=== PATIENT | female | born 1955 | race Caucasian/White ===

== ENCOUNTER 2018-02-19 09:45 | Day surgery (SDC) | payer OTHER ==
[~2018-02-19] VITALS: Ht 165.1 cm; Wt 122.7 kg
--- NOTE | ~2018-02-19 | OP ---
PATIENT NAME: EDWIN GRIGGS MEDICAL RECORD: [id number] :55 LOCATION:[facility] ADMISSION DATE: SURGEON: NU CASTELLANOS MD DATE OF OPERATION: 02/19/2018 PROCEDURE: EGD with biopsy. AGILE PROJECT MANAGER: Nu Castellanos MD SCOPE: Olympus video gastroscope. MEDICATIONS: Per TIVA anesthesia. The patient received 150 mg of propofol for this procedure, O2 4 liters. INDICATION FOR THE PROCEDURE: Iron deficiency anemia and gastroesophageal reflux disease. The patient sees Dr. Starks for her anemia and will receive a copy of this report. FINDINGS: Informed consent was given. The patient was made comfortable with the above medications. After reaching an adequate level of sedation by slow IV push, the patient was placed on her left side. The endoscope was then advanced under direct visualization through the posterior pharyngeal area and advanced to the distal esophagus. At the distal esophageal area, only minimal inflammation was appreciated. Biopsies were obtained. On entering the stomach, very mild to moderate inflammation was noted. No ulcers were appreciated. No erosions were seen. The cardia, body, and fundus had inflammation, but to a lesser degree. The duodenal bulb to the second portion had mild inflammation noted. Biopsies were again obtained. The scope was then withdrawn. IMPRESSION: 1. Mild distal esophagitis. 2. Mild to moderate gastritis. 3. Mild duodenitis. No ulcers. PLAN: The patient is presently taking Prilosec at a dose of 20 mg p.o. b.i.d. Due to her iron deficiency, I would like to stop this medication and change to famotidine at a dose of 20 mg p.o. b.i.d. The reason for stopping Prilosec is that it can add to both iron and calcium deficiency. The patient should follow reflux precautions. No chocolate, tomato, citrus, caffeine, fatty foods, peppermint. The patient should not eat late at night and sit up for at least 2 hours after every meal. We will be proceeding with a colonoscopy in the future. TRANSINT:[id number] Voice Confirmation ID: [id number] DOCUMENT ID: [id number] CC: Kristina Henry APN [id number] Dr. Starks OPERATIVE REPORT [id number] ELIAS GRIGGSORAH NU CASTELLANOS MD at 1421 CC: SHALINI STARKS MD and KRISTINA HENRY [id number] DICTATION DATE: 02/19/18 1315 CORD TIRE BUILDER: 02/19/18 1334 [facility] [place] 02/19/18 [id number] [place] [address]
[2018-02-19] MEDS ORDERED: VICTOZA0.6 MG/0.1 SQ (10:47)
[2018-02-19] MEDS ORDERED: LEVEMIR100 U/M1 SC (10:47)
[2018-02-19] MEDS ORDERED: NIFEDIPINE ER60 MG PO (10:48)
[2018-02-19] MEDS ORDERED: GLUCOPHAGE500 MG PO (10:48)
[2018-02-19] MEDS ORDERED: CATAPRES0.1 MG PO (10:49)
[2018-02-19] MEDS ORDERED: ALDACTONE50 MG PO (10:50)
[2018-02-19] MEDS ORDERED: SINGULAIR10 MG PO (10:51)
[2018-02-19] MEDS ORDERED: ZOLOFT100 MG PO (10:51)
[2018-02-19] MEDS ORDERED: XOPENEX 0.0.63 MG/3 UPD (10:53)
[2018-02-19] MEDS ORDERED: PROVENTIL HFA6.7 GM INH (10:54)
[2018-02-19] MEDS ORDERED: COLACE100 MG PO (10:54)
[2018-02-19] MEDS ORDERED: NOVOLOG100 U/M1 SC (10:55)
[2018-02-19] MEDS ORDERED: FERROUS SULFAT325 MG PO (10:55)
[2018-02-19] MEDS ORDERED: BAYER CHEWABLE81 MG PO (10:56)
[2018-02-19 11:01] VITALS: BP 168/80; Ht 165.1 cm; Wt 122.7 kg
[2018-02-19 11:44] LABS: HEMATOCRIT 35.9 % (36.0-48.0); HEMOGLOBIN 11.3 g/dL (12-16); MCH 27.8 pg (26.0-34.0); MCHC 31.5 g/dL (31.0-37.0); MCV 88.2 fL (80.0-100.0); RBC 4.07 10x6/uL (4.00-5.40); RDW 14.5 % (11.5-14.5); WBC 12.9 10x3/uL (4.8-10.8)
[2018-02-19 11:55] LABS: CALC OSMOLALITY 285 mosm/kg (275-300); CALCIUM 9.1 mg/dL (8.5-10.1); CARBON DIOXIDE 29.7 mmol/L (21.0-32.0); CHLORIDE - SERUM 103 mmol/L (98-107); CREATININE - SERUM 0.7 mg/dL (0.6-1.3); GLUCOSE 119 mg/dL (74-106); POTASSIUM - SERUM 4.1 mmol/L (3.5-5.1); SODIUM 143 mmol/L (136-145); UREA NITROGEN 13 mg/dL (7-18); eGFR NON AFRICAN AMERICAN 90 mL/min (90-120)
== END 2018-02-19 14:00 | disposition home or self-care (01) ==
LOC: D.OPS 09:45
PROVIDERS: Anesthesiology
DX: K21.0 Gastro-esophageal reflux disease with esophagitis (principal); K29.50 Unspecified chronic gastritis without bleeding; K29.80 Duodenitis without bleeding; D50.9 Iron deficiency anemia, unspecified; Z01.812 Encounter for preprocedural laboratory examination

== ENCOUNTER 2018-05-09 09:41 | Emergency (ER) | payer OTHER ==
[~2018-05-09] VITALS: Ht 165.1 cm; Wt 125.0 kg
[~2018-05-09 09:41] MED LIST: ALDACTONE50 MG PO; BAYER CHEWABLE81 MG PO; CATAPRES0.1 MG PO; COLACE100 MG PO; FERROUS SULFAT325 MG PO; GLUCOPHAGE500 MG PO; LEVEMIR100 U/M1 SC; NIFEDIPINE ER60 MG PO; NOVOLOG100 U/M1 SC; PROVENTIL HFA6.7 GM INH; SINGULAIR10 MG PO; VICTOZA0.6 MG/0.1 SQ; XOPENEX 0.0.63 MG/3 UPD; ZOLOFT100 MG PO
[2018-05-09 09:46] VITALS: BP 184/81; Ht 165.1 cm; Wt 125.0 kg
[2018-05-09] MEDS ORDERED: TORADOL10 MG PO (10:55)
== END 2018-05-09 11:17 | disposition home or self-care (01) ==
LOC: D.ER 09:41
DX: M75.101 Unspecified rotator cuff tear or rupture of right shoulder, not specified as traumatic (principal); E11.9 Type 2 diabetes mellitus without complications; I10 Essential (primary) hypertension

== ENCOUNTER 2018-09-17 12:30 | Day surgery (SDC) | payer OTHER ==
[~2018-09-17] VITALS: Ht 165.1 cm; Wt 125.5 kg
--- NOTE | ~2018-09-17 | OP ---
PATIENT NAME: EDWIN GRIGGS MEDICAL RECORD: [id number] :55 LOCATION:[facility] ADMISSION DATE: SURGEON: NU CASTELLANOS MD DATE OF OPERATION: 09/17/2018 PROCEDURE: Colonoscopy, no polypectomy, no biopsy. SUPERVISOR COMPUTER OPERATIONS: Nu Castellanos MD SCOPE: Olympus video colonoscope. MEDICATIONS: Per TIVA anesthesia. The patient received 480 mg of propofol for this procedure, O2 at 4 liters. INDICATION FOR THE PROCEDURE: Anemia with iron deficiency. The patient has a history of polyps in the past. Last colonoscopy in 2008. FINDINGS: Informed consent was given. The patient was made comfortable with the above medications. After reaching an adequate level of sedation by slow IV push, the patient was placed on her left side. The rectal exam revealed good sphincter tone. No fissures or fistulas were appreciated. No external skin tags were seen. The colonoscope was advanced to the cecum, where the ileocecal valve and appendiceal orifice were identified. On withdrawal of the scope, mucosa was carefully inspected. The patient was noted to have very mild left-sided diverticulosis without diverticulitis. Additionally, she did have spasm associated with irritable bowel syndrome, and of note, there were some adhesions in the pelvic area adding to the difficulty of this procedure. The scope was slowly withdrawn. Mucosa was inspected. No polyps, masses, or inflammation was appreciated. On retroflexion and final withdrawal of the scope, both internal and external hemorrhoids were seen. IMPRESSION: 1. Mild left-sided diverticulosis without diverticulitis. 2. Spasm associated with irritable bowel syndrome. 3. Pelvic adhesions. 4. Internal and external hemorrhoids. PLAN: 1. Resume previous medications. 2. High-fiber diet. 3. Probiotics. 4. Return to clinic on a p.r.n. basis. TRANSINT:[id number] Voice Confirmation ID: [id number] DOCUMENT ID: [id number] NU CASTELLANOS MD CC: JEANNE HENRY APN [id number] DICTATION DATE: 09/17/18 1549 DREDGEMASTER: 09/17/181918 [facility] 09/17/18 [facility] [address] [id number]
[~2018-09-17 12:30] MED LIST changes: +TORADOL10 MG PO
[2018-09-17 12:32] LABS: HEMOGLOBIN 12.8 g/dL (12-16); MCH 27.8 pg (26.0-34.0); MCV 86.8 fL (80.0-100.0); MEAN PLATELET VOLUME 8.8 fL (7.4-10.4); RBC 4.61 10x6/uL (4.00-5.40); RDW 13.7 % (11.5-14.5); WBC 12.3 10x3/uL (4.8-10.8)
[2018-09-17 12:51] LABS: ANION GAP 12.7 mmol/L (8-16); CALCIUM 8.5 mg/dL (8.5-10.1); CARBON DIOXIDE 28.1 mmol/L (21.0-32.0); CREATININE - SERUM 0.9 mg/dL (0.6-1.3); POTASSIUM - SERUM 3.8 mmol/L (3.5-5.1)
[2018-09-17] MEDS ORDERED: PEPCID AC20 MG PO (13:14)
[2018-09-17 13:24] VITALS: BP 153/69; Ht 165.1 cm; Wt 125.5 kg
== END 2018-09-17 17:40 | disposition home or self-care (01) ==
LOC: D.OPS 12:30
PROVIDERS: Anesthesiology
DX: D50.9 Iron deficiency anemia, unspecified (principal); Z86.010 Personal history of colon polyps; K57.30 Diverticulosis of large intestine without perforation or abscess without bleeding; K58.9 Irritable bowel syndrome, unspecified; K64.8 Other hemorrhoids; K64.4 Residual hemorrhoidal skin tags; N73.6 Female pelvic peritoneal adhesions (postinfective); Z01.812 Encounter for preprocedural laboratory examination

== ENCOUNTER → 2018-10-26 09:42 | Outpatient (CLI) | payer OTHER ==
[2018-09-17 13:24] VITALS: BMI 46.0
[~2018-10-26 09:42] MED LIST changes: +PEPCID AC20 MG PO
== END | disposition home or self-care (01) ==
LOC: D.RT 10-16 09:00
DX: J45.909 Unspecified asthma, uncomplicated (principal)

== ENCOUNTER → 2018-11-23 17:43 | Outpatient (CLI) | payer OTHER ==
[2018-09-17 13:24] VITALS: BMI 46.0
[2018-11-25 07:29] LABS: IMMUNOGLOBULIN A 472 mg/dL (87-352); IMMUNOGLOBULIN G 967 mg/dL (700-1600); IMMUNOGLOBULIN M 58 mg/dL (26-217)
[2018-11-27 13:16] LABS: IMMUNOGLOBULIN E 689 IU/mL (0-100)
== END | disposition home or self-care (01) ==
LOC: D.LABREF 17:43
PROVIDERS: Internal Medicine Pulmonary Disease
DX: J45.909 Unspecified asthma, uncomplicated (principal)

== ENCOUNTER → 2019-01-28 14:36 | Outpatient (CLI) | payer OTHER ==
[2018-09-17 13:24] VITALS: BMI 46.0
== END | disposition home or self-care (01) ==
LOC: D.LABREF 14:36
PROVIDERS: ATTEND Internal Medicine Pulmonary Disease
DX: J11.1 Influenza due to unidentified influenza virus with other respiratory manifestations (principal)

== ENCOUNTER → 2019-02-10 12:45 | Outpatient (CLI) | payer OTHER ==
[~2019-02-10 12:45] MED LIST changes: +GABAPENTIN100 MG PO
[2019-02-10 13:33] LABS: BASOPHILS 0.2 % (0-2); EOSINOPHILS 3.1 % (0-7); HEMOGLOBIN 11.7 g/dL (12-16); IMMATURE GRANULOCYTES 0.7 % (0-5); LYMPHOCYTES 20.2 % (15-50); MCH 26.2 pg (26.0-34.0); MCHC 30.8 g/dL (31.0-37.0); MEAN PLATELET VOLUME 8.4 fL (7.4-10.4); MONOCYTES 9.3 % (2-11); NEUTROPHILS 66.5 % (40-80); PLATELET COUNT 465 10x3/uL (130-400); RBC 4.47 10x6/uL (4.00-5.40); RDW 14.3 % (11.5-14.5); WBC 12.1 10x3/uL (4.8-10.8)
[2019-02-11 08:19] LABS: IMMUNOGLOBULIN A 501 mg/dL (87-352)
[2019-02-12 06:16] LABS: IGG SUBCLASS 1 723 mg/dL (248-810); IGG SUBCLASS 2 213 mg/dL (130-555); IGG SUBCLASS 3 46 mg/dL (15-102); IGG SUBCLASS 4 48 mg/dL (2-96); IMMUNOGLOBULIN G 1051 mg/dL (700-1600)
[2019-02-23 09:13] LABS: IMMUNOGLOBULIN E 645 IU/mL (6-495)
== END | disposition home or self-care (01) ==
LOC: D.RAD 12:45
PROVIDERS: Internal Medicine Pulmonary Disease
DX: J45.901 Unspecified asthma with (acute) exacerbation (principal); J42 Unspecified chronic bronchitis

== ENCOUNTER 2019-07-25 14:40 | Emergency (ER) | payer OTHER ==
[~2019-07-25] VITALS: Ht 165.1 cm; Wt 130.9 kg
[~2019-07-25 14:40] MED LIST changes: -GABAPENTIN100 MG PO
[2019-07-25 14:44] VITALS: Ht 165.1 cm; Wt 130.9 kg
[2019-07-25] MEDS ORDERED: GABAPENTIN100 MG PO (15:30)
[2019-07-25 15:44] VITALS: BP 152/86
== END 2019-07-25 15:47 | disposition home or self-care (01) ==
LOC: D.ER 14:40
DX: M54.16 Radiculopathy, lumbar region (principal); E11.9 Type 2 diabetes mellitus without complications; I10 Essential (primary) hypertension; K21.9 Gastro-esophageal reflux disease without esophagitis

== ENCOUNTER → 2020-07-07 13:29 | Outpatient (CLI) | payer MEDICARE ==
[2019-07-25 14:44] VITALS: BMI 48.0
[~2020-07-07 13:29] MED LIST changes: +GABAPENTIN100 MG PO
== END | disposition home or self-care (01) ==
LOC: D.LAB 13:29
PROVIDERS: ATTEND Internal Medicine Pulmonary Disease
DX: Z11.59 Encounter for screening for other viral diseases (principal)

== ENCOUNTER → 2020-07-11 09:09 | Outpatient (CLI) | payer MEDICARE ==
[2019-07-25 14:44] VITALS: BMI 48.0
== END | disposition home or self-care (01) ==
LOC: D.RAD 09:09 → D.RT 10:00
PROVIDERS: ATTEND Internal Medicine Pulmonary Disease
DX: J44.9 Chronic obstructive pulmonary disease, unspecified (principal); Z13.9 Encounter for screening, unspecified